=== PATIENT | male | born 2000 | race American Indian/Alaskan Native ===

== ENCOUNTER 2020-11-21 20:21 | Emergency (ER) | payer SELFPAY ==
[2020-11-21] MEDS ORDERED: ALBUTEROL 2.5 MG/3 ML NEBU IH ONE (20:28)
[2020-11-21] MEDS ORDERED: IPRATROPIUM 0.02% NEBU 2.5 ML IH ONE (20:28)
--- NOTE | 2020-11-21 20:43 | Emergency Department Report ---
HPI - General Time Seen by Provider: 11/21/20 20:27 - HPI HPI: This is a 20-year-old -[place] male who presents to the emergency department via EMS with complaint of shortness of breath. EMS says that the patient is having an asthma attack and it does appear that the patient does have a previous history of asthma. He received 7.5 mg of albuterol, 125 mg of Solu-Medrol, 2 g of magnesium, and a dose of epi in route with EMS. The patient is only answering a few select questions. Once the patient was placed on the BiPAP he began talking slightly more and says that he feels like he "blacked out" upon arrival here. Apparently the patient was picked up from a parking lot of a gas station. He denies any tobacco or illicit drug use. ED Past Medical Hx - Past Medical History Previous Medical History?: Yes Hx Asthma: Yes - Surgical History Past Surgical History?: No - Medications Home Medications: Home Medications Medication Instructions Recorded Confirmed Last Taken Type ALBUTEROL NEB's [Proventil 0.083% 2.5 mg IH Q6H PRN #1 neb 11/21/20 Unknown Rx NEBS] Albuterol Mdi (or & Nicu Only) 2 puff IH QID PRN #8.5 gram 11/21/20 Unknown Rx [ProAir HFA Inhaler] predniSONE [Deltasone] 20 mg PO BID #8 tab 11/21/20 Unknown Rx ED Review of Systems ROS: Stated complaint: MIGUE Other details as noted in HPI Comment: Unobtainable due to pts medical conditions Respiratory: shortness of breath, wheezing Cardiovascular: chest pain (tightness) Physical Exam - Physical Exam Physical Exam: GENERAL: The patient is well-developed well-nourished. HENT: Normocephalic. Atraumatic. Patient has moist mucous membranes. EYES: Extraocular motions are intact. Pupils equal reactive to light bilaterally. NECK: Supple. Trachea is midline. CHEST/LUNGS: Wheezing heard bilaterally. There is very little air movement heard. Patient has tachypnea and conversational dyspnea. HEART/CARDIOVASCULAR: Regular. There is mild tachycardia. There is no murmur. ABDOMEN: Abdomen is soft, nontender. Patient has normal bowel sounds. There is no abdominal distention. SKIN: Skin is warm and dry. NEURO: The patient is awake but selectively cooperative. MUSCULOSKELETAL: There is no tenderness or deformity. There is no limitation range of motion. ED Medical Decision Making - Lab Data Result diagrams: 11/21/20 20:49 11/21/20 20:49 Lab Results 11/21/20 11/21/20 11/21/20 Range/Units 20:49 20:49 20:49 WBC 8.0 (4.5-11.0) K/mm3 RBC 5.37 H (3.65-5.03) M/mm3 Hgb 14.7 (11.8-15.2) gm/dl Hct 44.5 (35.5-45.6) % MCV 83 L (84-94) fl MCH 27 L (28-32) pg MCHC 33 (32-34) % RDW 14.0 (13.2-15.2) % Plt Count 262 (140-440) K/mm3 Lymph % (Auto) 40.2 H (13.4-35.0) % [place] % (Auto) 6.8 (0.0-7.3) % Eos % (Auto) 4.4 H (0.0-4.3) % Baso % (Auto) 0.4 (0.0-1.8) % Lymph # (Auto) 3.2 (1.2-5.4) K/mm3 [place] # (Auto) 0.6 (0.0-0.8) K/mm3 Eos # (Auto) 0.4 (0.0-0.4) K/mm3 Baso # (Auto) 0.0 (0.0-0.1) K/mm3 Seg Neutrophils % 48.2 (40.0-70.0) % Seg Neutrophils # 3.9 (1.8-7.7) K/mm3 PT 13.1 (12.2-14.9) Sec. INR 1.00 (0.87-1.13) Sodium 140 (137-145) mmol/L Potassium 4.2 (3.6-5.0) mmol/L Chloride 102.4 (98-107) mmol/L Carbon Dioxide 27 (22-30) mmol/L Anion Gap 15 mmol/L BUN 15 (9-20) mg/dL Creatinine 0.9 (0.8-1.3) mg/dL Estimated GFR > 60 ml/min BUN/Creatinine Ratio 17 % Glucose 122 H (75-100) mg/dL Calcium 8.8 (8.4-10.2) mg/dL Total Bilirubin 0.20 (0.1-1.2) mg/dL AST 24 (5-40) units/L ALT 19 (7-56) units/L Alkaline Phosphatase 41 (35-129) units/L Troponin T (0.00-0.029) ng/mL NT-Pro-B Natriuret Pep (0-450) pg/mL Total Protein 7.8 (6.3-8.2) g/dL Albumin 4.9 (3.9-5) g/dL Albumin/Globulin Ratio 1.7 % Plasma/Serum Alcohol (0-0.07) % 11/21/20 11/21/20 11/21/20 Range/Units 20:49 20:49 20:49 WBC (4.5-11.0) K/mm3 RBC (3.65-5.03) M/mm3 Hgb (11.8-15.2) gm/dl Hct (35.5-45.6) % MCV (84-94) fl MCH (28-32) pg MCHC (32-34) % RDW (13.2-15.2) % Plt Count (140-440) K/mm3 Lymph % (Auto) (13.4-35.0) % [place] % (Auto) (0.0-7.3) % Eos % (Auto) (0.0-4.3) % Baso % (Auto) (0.0-1.8) % Lymph # (Auto) (1.2-5.4) K/mm3 [place] # (Auto) (0.0-0.8) K/mm3 Eos # (Auto) (0.0-0.4) K/mm3 Baso # (Auto) (0.0-0.1) K/mm3 Seg Neutrophils % (40.0-70.0) % Seg Neutrophils # (1.8-7.7) K/mm3 PT (12.2-14.9) Sec. INR (0.87-1.13) Sodium (137-145) mmol/L Potassium (3.6-5.0) mmol/L Chloride (98-107) mmol/L Carbon Dioxide (22-30) mmol/L Anion Gap mmol/L BUN (9-20) mg/dL Creatinine (0.8-1.3) mg/dL Estimated GFR ml/min BUN/Creatinine Ratio % Glucose (75-100) mg/dL Calcium (8.4-10.2) mg/dL Total Bilirubin (0.1-1.2) mg/dL AST (5-40) units/L ALT (7-56) units/L Alkaline Phosphatase (35-129) units/L Troponin T < 0.010 (0.00-0.029) ng/mL NT-Pro-B Natriuret Pep 27.51 (0-450) pg/mL Total Protein (6.3-8.2) g/dL Albumin (3.9-5) g/dL Albumin/Globulin Ratio % Plasma/Serum Alcohol < 0.01 (0-0.07) % - Medical Decision Making Initially this patient presents in respiratory distress. He has tachypnea, conversational dyspnea, with wheezing heard but very little air movement. I also believe the patient was having some sort of panic attack concurrently. Initially the patient was only answering select questions and being selectively cooperative. After the patient was placed on the BiPAP he appeared more alert and oriented, was more cooperative, and says that he felt like he "blacked out." Chest x-ray did not show any pneumonia, pleural effusions, pneumothorax, or any other acute process. The patient had already received albuterol, Solu-Medrol, magnesium and epi in route with EMS. He was given a continuous breathing paula atment fed through the BiPAP. The patient was reevaluated after the continuous breathing treatment and appears immensely improved. We were able to take him off of the BiPAP machine and placed him on nasal cannula at 2 L. The patient now has good air movement. There is no tachypnea, conversational dyspnea, or any signs of respiratory distress. Patient was able to give more history. He denies ever having been admitted to the hospital for asthma previously. This evening the patient began feeling short of breath and began wheezing while at work. He went to his car to use his nebulizer treatment and had some transient improvement. 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 Patient is now out of his albuterol inhaler, nebulizer medication. He says that he does have a primary care physician for follow-up. Overall patient has been in the emergency department for about 3.5 hours. There has been no return of his dyspnea, bronchospasm or signs of respiratory distress. Patient is afebrile. There has been no hypoxia. For all these reasons he appears safe for discharge home at this time. He has been given a refill of his albuterol inhaler and nebulizer medication, as well as a course of steroids. He will return to the emergency department with any worsening of his symptoms or with any acute distress. Critical Care Time: No Critical care attestation.: If time is entered above; I have spent that time in minutes in the direct care of this critically ill patient, excluding procedure time. ED Disposition Clinical Impression: Bronchospasm Asthma exacerbation Qualifiers: Asthma severity: unspecified severity Asthma persistence: unspecified Qualified Code(s): J45.901 - Unspecified asthma with (acute) exacerbation Disposition: TO HOME OR SELFCARE Is pt being admited?: No Condition: Stable Instructions: Bronchospasm, Adult, Asthma Attack Additional Instructions: Please follow-up with your primary care physician in the next few days. Return to the emergency department with any worsening of your symptoms, new or concerning symptoms not addressed during this current emergency department visit, or with any acute distress. Prescriptions: predniSONE [Deltasone] 20 mg PO BID #8 tab Albuterol Mdi (or & Nicu Only) [ProAir HFA Inhaler] 2 puff IH QID PRN #8.5 gram PRN Reason: Shortness Of Breath ALBUTEROL NEB's [Proventil 0.083% NEBS] 2.5 mg IH Q6H PRN #1 neb PRN Reason: Wheezing Referrals: PRIMARY CARE, [Primary Care Provider] - 2-3 Days Time of Disposition: 22:50
[2020-11-21 21:10] LABS: Basophils % (Auto) 0.4 % (0.0-1.8); Eosinophils # (Auto) 0.4 K/mm3 (0.0-0.4); Eosinophils % (Auto) 4.4 % (0.0-4.3); Hematocrit 44.5 % (35.5-45.6); Hemoglobin 14.7 gm/dl (11.8-15.2); Lymphocytes # (Auto) 3.2 K/mm3 (1.2-5.4); Lymphocytes % (Auto) 40.2 % (13.4-35.0); Mean Corpuscular HGB Conc 33 % (32-34); Mean Corpuscular Volume 83 fl (84-94); Monocytes # (Auto) 0.6 K/mm3 (0.0-0.8); Monocytes % (Auto) 6.8 % (0.0-7.3); Platelet Count 262 K/mm3 (140-440); Red Blood Count 5.37 M/mm3 (3.65-5.03)
[2020-11-21 21:31] LABS: Alanine Aminotransferase 19 units/L (7-56); Albumin 4.9 g/dL (3.9-5); BUN/Creatinine Ratio 17; Blood Urea Nitrogen 15 mg/dL (9-20); Calcium 8.8 mg/dL (8.4-10.2); Hemolysis Index 5
--- NOTE | 2020-11-21 23:08 | XRay Report ---
CHEST 1 VIEW INDICATION / CLINICAL INFORMATION: SOB. COMPARISON: None available. FINDINGS: SUPPORT DEVICES: None. HEART / MEDIASTINUM: No significant abnormality. LUNGS / PLEURA: No significant pulmonary or pleural abnormality. No pneumothorax. ADDITIONAL FINDINGS: No significant additional findings. IMPRESSION: 1. No acute findings. Signer Name: Nusrat Armstrong MD Signed: 11/21/2020 11:03 PM Workstation Name: [id number]
[2020-11-21 23:48] VITALS: BP 132/77
== END 2020-11-22 01:00 | disposition home or self-care (01) ==
LOC: ED 20:21
DX: J45.901 Unspecified asthma with (acute) exacerbation (principal); Z79.899 Other long term (current) drug therapy
CPT/HCPCS: 36415; 71045; 80053; 80320; 83880; 84484; 85025; 85610; 94644; G0480

== ENCOUNTER 2021-06-13 03:35 | Emergency (ER) | payer OTHER ==
--- NOTE | 2021-06-13 03:48 | Emergency Department Report ---
<ZOEY GAYLE - Last Filed: 06/13/21 07:23> ED Shortness of Breath HPI - General Stated Complaint: ASTHMA ATTACK - Related Data Previous Rx's Medication Instructions Recorded Last Taken Type ALBUTEROL NEB's [Proventil 0.083% 2.5 mg IH Q6H PRN #1 neb 06/13/21 Unknown Rx NEBS] Albuterol Mdi (or & Nicu Only) 2 puff IH QID PRN #8.5 gram 06/13/21 Unknown Rx [ProAir HFA Inhaler] predniSONE [Deltasone] 20 mg PO BID #8 tab 06/13/21 Unknown Rx Allergies Allergy/AdvReac Type Severity Reaction Status Date / Time No Known Allergies Allergy Verified 06/13/21 03:47 ED Past Medical Hx - Medications Home Medications: Home Medications Medication Instructions Recorded Confirmed Last Taken Type ALBUTEROL NEB's [Proventil 0.083% 2.5 mg IH Q6H PRN #1 neb 06/13/21 Unknown Rx NEBS] Albuterol Mdi (or & Nicu Only) 2 puff IH QID PRN #8.5 gram 06/13/21 Unknown Rx [ProAir HFA Inhaler] predniSONE [Deltasone] 20 mg PO BID #8 tab 06/13/21 Unknown Rx ED Course - Reevaluation(s) Reevaluation #1: 06/13/21 07:23 Patient reassessed by myself. He is not wheezing. Heart rate 111 bpm. He is currently on his cellular phone. He reports complete resolution of his symptoms. He denies physical pain, and he denies travel, surgery, immobili zation, DVT/PE risk factors. He is requesting discharge. He does not require BiPAP, noninvasive or invasive ventilation, or hospitalization or admission at this time. Prescriptions were written by the prior physician. I discussed this with the patient. He articulated understanding. All questions answered. Tachycardia at this time is likely secondary to albuterol administration. ED Medical Decision Making - Lab Data Result diagrams: 06/13/21 04:22 06/13/21 04:22 Vital Signs 06/13/21 06/13/21 06/13/21 03:36 03:54 04:00 Temperature 98.1 F Pulse Rate 117 H Pulse Rate [ 102 H Bilateral] Respiratory 22 17 Rate Respiratory 16 Rate [Bilateral ] Blood Pressure Blood Pressure 152/110 [Right] O2 Sat by Pulse 96 99 Oximetry 06/13/21 06/13/21 06/13/21 04:01 04:08 04:15 Temperature Pulse Rate 101 H 105 H Pulse Rate [ Bilateral] Respiratory 17 15 Rate Respiratory Rate [Bilateral ] Blood Pressure 144/102 143/93 Blood Pressure [Right] O2 Sat by Pulse 100 100 99 Oximetry 06/13/21 06/13/21 06/13/21 04:30 04:31 05:25 Temperature Pulse Rate 101 H Pulse Rate [ 108 H 111 H Bilateral] Respiratory 15 Rate Respiratory 18 18 Rate [Bilateral ] Blood Pressure 149/89 Blood Pressure [Right] O2 Sat by Pulse 100 Oximetry 06/13/21 06/13/21 06/13/21 05:45 05:47 06:15 Temperature Pulse Rate 111 H 126 H Pulse Rate [ 113 H Bilateral] Respiratory 13 19 Rate Respiratory 18 Rate [Bilateral ] Blood Pressure 131/79 157/88 Blood Pressure [Right] O2 Sat by Pulse 100 99 Oximetry Lab Results 06/13/21 06/13/21 Range/Units 04:22 04:22 WBC 7.7 (4.5-11.0) K/mm3 RBC 5.63 H (3.65-5.03) M/mm3 Hgb 14.5 (11.8-15.2) gm/dl Hct 46.1 H (35.5-45.6) % MCV 82 L (84-94) fl MCH 26 L (28-32) pg MCHC 31 L (32-34) % RDW 14.4 (13.2-15.2) % Plt Count 249 (140-440) K/mm3 Lymph % (Auto) 11.3 L (13.4-35.0) % [place] % (Auto) 5.4 (0.0-7.3) % Eos % (Auto) 0.1 (0.0-4.3) % Baso % (Auto) 0.3 (0.0-1.8) % Lymph # (Auto) 0.9 L (1.2-5.4) K/mm3 [place] # (Auto) 0.4 (0.0-0.8) K/mm3 Eos # (Auto) 0.0 (0.0-0.4) K/mm3 Baso # (Auto) 0.0 (0.0-0.1) K/mm3 Seg Neutrophils % 82.9 H (40.0-70.0) % Seg Neutrophils # 6.4 (1.8-7.7) K/mm3 Sodium 141 (137-145) mmol/L Potassium 3.9 (3.6-5.0) mmol/L Chloride 100.1 (98-107) mmol/L Carbon Dioxide 28 (22-30) mmol/L Anion Gap 17 mmol/L BUN 10 (9-20) mg/dL Creatinine 0.7 L (0.8-1.3) mg/dL Estimated GFR > 60 ml/min BUN/Creatinine Ratio 14 % Glucose 125 H (75-100) mg/dL Calcium 9.5 (8.4-10.2) mg/dL Total Bilirubin 0.20 (0.1-1.2) mg/dL AST 22 (5-40) units/L ALT 19 (7-56) units/L Alkaline Phosphatase 41 (35-129) units/L Total Protein 7.9 (6.3-8.2) g/dL Albumin 5.1 H (3.9-5) g/dL Albumin/Globulin Ratio 1.8 % ED Disposition Clinical Impression: Asthma exacerbation Disposition: 01 HOME / SELF CARE / HOMELESS Is pt being admited?: No Does the pt Need Aspirin: No Condition: Good Instructions: Asthma Attack Additional Instructions: Please use the albuterol medication as directed, and steroids as directed. Avoid consumption of tobacco, and smoke products. Follow-up with a primary care doctor within the next week. Please return to the emergency room right away with new pain, worsened pain, migration of pain, projectile vomiting, change in mental status, confusion, inability to tolerate liquid feeds, new, worsened or different symptoms not present on the initial emergency room evaluation Prescriptions: predniSONE [Deltasone] 20 mg PO BID #8 tab Albuterol Mdi (or & Nicu Only) [ProAir HFA Inhaler] 2 puff IH QID PRN #8.5 gram PRN Reason: Shortness Of Breath ALBUTEROL NEB's [Proventil 0.083% NEBS] 2.5 mg IH Q6H PRN #1 neb PRN Reason: Wheezing Referrals: [facility] [Provider Group] - 3-5 Days Forms: Work/School Release Form(ED) <ROSARIO BAJWAChayito - Last Filed: 06/13/21 23:31> ED Shortness of Breath HPI - General Source: patient - History of Present Illness Initial Comments: Patient is a 21-year-old male with history of asthma who presents emergency department complaint of shortness of breath. Patient reports that it feels like previous asthma exacerbations. He notes that he has had shortness of breath since around 5 PM. Patient is currently bonded out of intermediate but did not get interventions in intermediate. EMS did intervene and patient was given nebulizer treatment, Solu-Medrol, magnesium. Patient still having symptoms of asthma exacerbation but is able to talk and give additional history. He denies any recent fevers or chills. He has not had cough. He is not vaccinated against COVID-19. ED Review of Systems ROS: Stated complaint: ASTHMA ATTACK Other details as noted in HPI Constitutional: denies: chills, fever Eyes: denies: eye pain ENT: denies: throat pain Respiratory: shortness of breath, wheezing. denies: cough Cardiovascular: denies: chest pain Endocrine: no symptoms reported Gastrointestinal: denies: abdominal pain, nausea, vomiting Genitourinary: denies: urgency, dysuria Musculoskeletal: denies: back pain Skin: denies: rash Neurological: denies: headache, weakness Psychiatric: denies: anxiety, depression Hematological/Lymphatic: denies: easy bleeding ED Past Medical Hx - Past Medical History Hx Asthma: Yes - Social History Smoking Status: Never Smoker ED Physical Exam - General General appearance: alert, in distress - Head Head exam: Present: atraumatic, normocephalic - Eye Eye exam: Present: normal appearance - ENT ENT exam: Present: mucous membranes moist - Neck Neck exam: Present: normal inspection - Respiratory Respiratory exam: Present: respiratory distress, wheezes - Cardiovascular Cardiovascular Exam: Present: tachycardia - GI/Abdominal GI/Abdominal exam: Present: soft. Absent: distended, tenderness - Rectal Rectal exam: Present: deferred - exam: Present: normal inspection - Extremities Exam Extremities exam: Present: normal inspection, full ROM. Absent: pedal edema - Back Exam Back exam: Present: normal inspection - Neurological Exam Neurological exam: Present: alert, oriented X3 - Psychiatric Psychiatric exam: Present: normal affect - Skin Skin exam: Present: warm, dry, intact ED Course Vital Signs 06/13/21 06/13/21 06/13/21 03:36 03:54 04:00 Temperature 98.1 F Pulse Rate 117 H Pulse Rate [ 102 H Bilateral] Respiratory 22 17 Rate Respiratory 16 Rate [Bilateral ] Blood Pressure Blood Pressure 152/110 [Right] O2 Sat by Pulse 96 99 Oximetry 06/13/21 06/13/21 06/13/21 04:01 04:08 04:15 Temperature Pulse Rate 101 H 105 H Pulse Rate [ Bilateral] Respiratory 17 15 Rate Respiratory Rate [Bilateral ] Blood Pressure 144/102 143/93 Blood Pressure [Right] O2 Sat by Pulse 100 100 99 Oximetry 06/13/21 06/13/21 06/13/21 04:30 04:31 05:25 Temperature Pulse Rate 101 H Pulse Rate [ 108 H 111 H Bilateral] Respiratory 15 Rate Respiratory 18 18 Rate [Bilateral ] Blood Pressure 149/89 Blood Pressure [Right] O2 Sat by Pulse 100 Oximetry 06/13/21 06/13/21 06/13/21 05:45 05:47 06:15 Temperature Pulse Rate 111 H 126 H Pulse Rate [ 113 H Bilateral] Respiratory 13 19 Rate Respiratory 18 Rate [Bilateral ] Blood Pressure 131/79 157/88 Blood Pressure [Right] O2 Sat by Pulse 100 99 Oximetry 06/13/21 06/13/21 06/13/21 06:31 06:45 07:01 Temperature Pulse Rate 120 H 116 H 120 H Pulse Rate [ Bilateral] Respiratory 18 20 20 Rate Respiratory Rate [Bilateral ] Blood Pressure 127/75 131/73 149/77 Blood Pressure [Right] O2 Sat by Pulse 99 97 98 Oximetry 06/13/21 06/13/21 06/13/21 07:15 07:31 07:45 Temperature Pulse Rate 119 H 111 H 119 H Pulse Rate [ Bilateral] Respiratory 17 19 19 Rate Respiratory Rate [Bilateral ] Blood Pressure 149/77 144/86 133/87 Blood Pressure [Right] O2 Sat by Pulse 97 97 97 Oximetry 06/13/21 06/13/21 08:01 08:22 Temperature Pulse Rate 120 H 110 H Pulse Rate [ Bilateral] Respiratory 16 17 Rate Respiratory Rate [Bilateral ] Blood Pressure 127/91 Blood Pressure [Right] O2 Sat by Pulse 98 100 Oximetry - Reevaluation(s) Reevaluation #1: 06/13/21 05:09 Patient does appear significantly improved. His lungs sound clear patient is ambulatory to the restroom without any significant dyspnea. I have ordered 1 more nebulizer treatment and will discuss with patient for admission for observation versus discharge with close primary care follow-up. 06/13/21 06:14 Patient sounds improved. He is speaking in complete sentences. He is already ambulated. I discussed with patient observation versus discharge. Patient states he rather be discharged. Plan for discharge 640 after receiving some additional IV for IV fluids. Patient is still tachycardic but likely secondary to his albuterol treatment. ED Medical Decision Making - Lab Data Result diagrams: 06/13/21 04:22 06/13/21 04:22 - Radiology Data Radiology results: report reviewed - Medical Decision Making Patient is a 21-year-old male with history of asthma here with asthma exacerbation. Patient has had wheezing bilaterally and appears tight although he is able to speak. Plan to treat symptoms with additional albuterol nebs. Patient has already received Solu-Medrol and magnesium. If patient not improved after initial nebs patient will likely require subcu epi as well as possible BiPAP. Pending reassessment patient likely to be admitted. Critical care attestation.: If time is entered above; I have spent that time in minutes in the direct care of this critically ill patient, excluding procedure time. ED Disposition Is pt being admited?: No Does the pt Need Aspirin: No Time of Disposition: 08:30
[2021-06-13] MEDS: IPRATROPIUM/ALBUTEROL SULFATE 3 ML AMPUL.NEB IH ONE (03:54)
[2021-06-13] MEDS: SODIUM CHLORIDE 0.9% 1000 ML 1,000 ML IV ONE ×2 (04:20→06:15)
--- NOTE | 2021-06-13 04:28 | XRay Report ---
XR chest 1V ap INDICATION / CLINICAL INFORMATION: dyspnea; likely asthma exacerbation; eval for pneu. COMPARISON: 11/21/2020 FINDINGS: SUPPORT DEVICES: None. HEART /PULMONARY VASCULATURE: No significant abnormality. LUNGS / PLEURA: No significant pulmonary or pleural abnormality. No pneumothorax. ADDITIONAL FINDINGS: No significant additional findings. IMPRESSION: 1. No acute findings. Signer Name: Arsh Wolf MD Signed: 06/13/2021 4:23 AM Workstation Name: [id number]
[2021-06-13 04:46] LABS: Basophils % (Auto) 0.3 % (0.0-1.8); Eosinophils % (Auto) 0.1 % (0.0-4.3); Hematocrit 46.1 % (35.5-45.6); Hemoglobin 14.5 gm/dl (11.8-15.2); Lymphocytes # (Auto) 0.9 K/mm3 (1.2-5.4); Lymphocytes % (Auto) 11.3 % (13.4-35.0); Mean Corpuscular HGB Conc 31 % (32-34); Mean Corpuscular Volume 82 fl (84-94); Monocytes # (Auto) 0.4 K/mm3 (0.0-0.8); Monocytes % (Auto) 5.4 % (0.0-7.3); Platelet Count 249 K/mm3 (140-440); Red Blood Count 5.63 M/mm3 (3.65-5.03); Red Cell Distribution Width 14.4 % (13.2-15.2)
[2021-06-13 05:13] LABS: Alanine Aminotransferase 19 units/L (7-56); Albumin 5.1 g/dL (3.9-5); Blood Urea Nitrogen 10 mg/dL (9-20); Calcium 9.5 mg/dL (8.4-10.2); Hemolysis Index 3
[2021-06-13 05:14] LABS: BUN/Creatinine Ratio 14
[2021-06-13] MEDS: ALBUTEROL 2.5 MG/3 ML NEBU IH ONE (05:25)
[2021-06-13 08:09] VITALS: BP 127/91
== END 2021-06-13 08:23 | disposition home or self-care (01) ==
LOC: ED 03:35 → EEVIPCON 03:35 → ED 08:23
DX: J45.901 Unspecified asthma with (acute) exacerbation (principal)
CPT/HCPCS: 36415; 71045; 80053; 85025; 94644; 96360; 96361; 99284; J7030; Q0162